=== PATIENT | female | born 1980 ===

== ENCOUNTER → 2021-03-23 | Outpatient (CLI) | payer OTHER ==
[~2021-03-23] MED LIST: CHILDREN'S ASPI81 MG; PRENA1 CHEW TA1.4 MG; PROMETRIUM200 MG; ZOLOFT20 MG/1 ML
== END | disposition home or self-care (01) ==
LOC: PRENATAL 09:00
PROVIDERS: ATTEND Obstetrics & Gynecology Maternal & Fetal Medicine
DX: O26.21 Pregnancy care for patient with recurrent pregnancy loss, first trimester (principal); O36.80X1 Pregnancy with inconclusive fetal viability, fetus 1; O09.521 Supervision of elderly multigravida, first trimester; Z36.89 Encounter for other specified antenatal screening; Z3A.08 8 weeks gestation of pregnancy

== ENCOUNTER 2021-04-04 21:12 | Emergency (ER) | payer OTHER ==
[~2021-04-04] VITALS: Ht 162.6 cm; Wt 64.4 kg
[2021-04-04] MEDS ORDERED: ZOLOFT20 MG/1 ML (21:31)
[2021-04-04] MEDS ORDERED: PROMETRIUM200 MG (21:32)
[2021-04-04] MEDS ORDERED: CHILDREN'S ASPI81 MG (21:32)
[2021-04-04] MEDS ORDERED: PRENA1 CHEW TA1.4 MG (21:32)
== END 2021-04-05 02:24 | disposition home or self-care (01) ==
LOC: ER 21:12
DX: O20.0 Threatened abortion (principal)